=== PATIENT | female | born 2005 | race Caucasian/White ===

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

== ENCOUNTER 2023-01-11 09:20 | Emergency (ER) | payer OTHER ==
[~2023-01-11] VITALS: Ht 152.4 cm; Wt 71.9 kg
[2023-01-11 09:21] VITALS: BP 128/77; TEMP 97.9; O2SAT 96
== END 2023-01-11 11:13 | disposition left against medical advice (07) ==
LOC: M ED 09:20
DX: Z53.21 Procedure and treatment not carried out due to patient leaving prior to being seen by health care provider (principal)

== ENCOUNTER 2023-05-26 12:38 | Inpatient (IN) | payer OTHER ==
[2023-05-26] VITALS (32 sets, daily range): BP systolic 105–196; BP diastolic 54–103; O2SAT 98
[~2023-05-26] VITALS: Ht 165.1 cm; Wt 93.8 kg
[2023-05-26] MEDS ORDERED: SERT-141 PO (12:58)
[2023-05-26] MEDS ORDERED: ZYRTTAB8 PO (12:58)
[2023-05-26] MEDS ORDERED: TUMS750C5 PO (12:58)
[2023-05-26] MEDS ORDERED: HOME MED LIST COMPLETE! XX SCH (13:00)
[2023-05-26] MEDS ORDERED: LACTATED RINGER'S 1000 ML IV STA (13:58)
[2023-05-26] MEDS ORDERED: OXYTOCIN DRIP 30 UNITS in IV 1 EA IV PRN ×6 (14:00)
[2023-05-26] MEDS ORDERED: OXYTOCIN INJ 10UNITS/ML 1ML VIAL IV PRN (14:00)
[2023-05-26] MEDS ORDERED: CARBOPROST TROMETHAMINE 250 MCG/ML AMP IM PRN (14:00)
[2023-05-26] MEDS ORDERED: LR 1,000 ML IV SCH (14:00)
[2023-05-26] MEDS ORDERED: LIDOCAINE 1% MDV 20ML VIAL INFIL PRN (14:00)
[2023-05-26] MEDS ORDERED: TRANEXAMIC ACID INJection 1,000 MG in NS 100 ML IV PRN (14:00)
[2023-05-26] MEDS ORDERED: METHYLERGONOVINE MALEATE 0.2MG/ML 1ML VIAL IM PRN (14:00)
[2023-05-26] MEDS ORDERED: OXYTOCIN DRIP 30 UNITS in IV 1 EA IV SCH (14:00)
[2023-05-26] MEDS ORDERED: miSOPROStol 50MCG 1/2 TABLET PO PRN (14:00)
[2023-05-26] MEDS ORDERED: OXYTOCIN INJ 10UNITS/ML 1ML VIAL IM PRN (14:00)
[2023-05-26] MEDS ORDERED: REFLB XX ONE (15:10)
[2023-05-26] MEDS ORDERED: FENTANYL 2MCG/ML ROPIVACAINE 0.2% IN 0.9% NACL 100ML IVBAG As Ordered ONE (15:43)
[2023-05-26] MEDS ORDERED: ePHEDrine SULFATE 25 MG/5 ML(5MG/ML) SYRINGE IVP PRN (15:45)
[2023-05-26] MEDS ORDERED: LR 500 ML IV PRN (15:45)
[2023-05-26] MEDS ORDERED: EPIDURAL/PCA KEYS XX PRN (15:45)
[2023-05-26] MEDS ORDERED: NALOXONE INJ 0.4MG/1ML VIAL IV PRN (15:45)
[2023-05-26] MEDS ORDERED: ONDANSETRON 4MG 2ML VIAL IV PRN (15:45)
[2023-05-26] MEDS ORDERED: diphenhydrAMINE 50MG/ML VIAL IV PRN (15:45)
[2023-05-26] MEDS ORDERED: FENTANYL/ROPIVACAINE/NACL BAG 100 ML EPIDURAL SCH (15:45)
[2023-05-26 16:13] LABS: BASO % 0.2 % (0.0-1.0); EOS % 0.3 % (0.0-3.0); HEMATOCRIT 36.8 % (36.0-47.0); HEMOGLOBIN 12.1 g/dl (12.0-15.5); LYMPH # 1.7 10^3/uL (1.5-5.0); LYMPH % 12.2 % (24.0-44.0); MEAN CORPUSCULAR HEMOGLOBIN 28.3 pg (27.0-33.0); MEAN CORPUSCULAR HGB CONC 32.9 g/dl (32.0-36.5); MEAN CORPUSCULAR VOLUME 86.2 fl (80.0-96.0); MONO # 0.7 10^3/uL (0.0-0.8); MONO % 5.2 % (2.0-8.0); NEUTROPHILS # 11.3 10^3/uL (1.5-8.5); NEUTROPHILS % 81.5 % (36.0-66.0); PLATELET COUNT, AUTOMATED 177 10^3/uL (150-450); RED BLOOD COUNT 4.27 10^6/uL (4.00-5.40); WHITE BLOOD COUNT 13.9 10^3/uL (4.0-10.0)
[2023-05-26 20:28] LABS: CORD GAS ABE V -5.6; CORD GAS O2 SAT V 52.9 %; CORD GAS PH V 7.231 UNITS; CORD GAS SBC V 18.8 MMOL/L; CORD GAS TCO2 V 24.7 MMOL/L
[2023-05-26 20:29] LABS: CORD GAS ABE A -6.8; CORD GAS HCO3 A 22.2 MMOL/L; CORD GAS O2 SAT A 61.8 %; CORD GAS PCO2 A 57.7 mmHg; CORD GAS PH A 7.204 UNITS; CORD GAS PO2 A 33.6 mmHg; CORD GAS SBC A 18.2 MMOL/L
[2023-05-26] MEDS ORDERED: MOM 30ML SUSPENSION UDC PO PRN (20:30)
[2023-05-26] MEDS ORDERED: DIBUCAINE 1% OINTMENT 30GM TOP PRN (20:30)
[2023-05-26] MEDS ORDERED: IBUPROFEN 800 MG TAB PO PRN (20:30)
[2023-05-26] MEDS ORDERED: RHOGAM 300MCG (1500IU) INJ IM SCH (20:30)
[2023-05-27 06:00] VITALS: BP 127/77; O2SAT 97
[2023-05-27] MEDS: DOCUSATE SODIUM 100MG CAPSULE PO PRN ×2 (06:03→19:34)
[2023-05-27] MEDS: ACETAMINOPHEN 500 MG TAB PO PRN ×2 (06:04→13:13)
[2023-05-27] MEDS: PRENATAL VITAMINS CHEWABLE TABLET PO SCH (09:35)
[2023-05-27 18:00] VITALS: BP 108/64; O2SAT 99
[2023-05-28 06:00] VITALS: BP 109/59; O2SAT 97
[2023-05-28] MEDS: PRENATAL VITAMINS CHEWABLE TABLET PO SCH (07:43)
[2023-05-28] MEDS ORDERED: MEASLES,MUMPS,RUBELLA VACCINE INJ (MMR-II) SC.IMMUN ONE (09:00)
[2023-05-28] MEDS ORDERED: ACET-683 PO (09:49)
[2023-05-28] MEDS ORDERED: IBUP80TA PO (09:49)
[2023-05-28] MEDS ORDERED: COLA100C5 PO (09:49)
[2023-05-28] MEDS ORDERED: PRENCHW PO (09:49)
== END 2023-05-28 14:40 | disposition home or self-care (01) | DRG 807 ==
LOC: M LDO 12:38 → M LDI 13:43 → M OBS 22:55
PROVIDERS: ADMIT Obstetrics & Gynecology; ATTEND Obstetrics & Gynecology
PROC: 10E0XZZ Delivery of Products of Conception, External Approach (ICD-10-PCS; principal; 2023-05-26)
DX: O80 Encounter for full-term uncomplicated delivery (principal); Z37.0 Single live birth; Z3A.40 40 weeks gestation of pregnancy